=== PATIENT | male | born 1985 | race Hispanic/Latino ===

== ENCOUNTER 2024-01-15 09:11 | Emergency (ER) | payer OTHER, SELFPAY ==
[2024-01-15] MEDS ORDERED: Acetaminophen 500 MG TAB ONE (09:42)
[2024-01-15] MEDS ORDERED: Ondansetron PF 4 MG/2 ML Vial ONE (09:43)
[2024-01-15] MEDS ORDERED: Sodium Chloride 0.9% 1,000 ML ONE (09:43)
[2024-01-15 10:14] LABS: #Basophils 0.1 thou/uL (0.0-0.2); #Lymphocytes 1.9 thou/uL (1.20-3.40); #Monocytes 0.8 thou/uL (0.11-0.59); #Neutrophils 3.4 thou/uL (1.40-6.50); %Eosinophils 0.7 % (0.0-10.0); %Lymphocytes 30.4 % (21.0-51.0); %Monocytes 12.7 % (0.0-10.0); %Neutrophils 54.1 % (42.0-75.0); Hemoglobin 14.9 g/dL (14.0-18.0); Mean Corpuscular HGB CONC 33.1 g/dL (32.0-36.0); Mean Corpuscular Volume 84.7 fl (78.0-98.0); Mean Platelet Volume 8.7 fL (7.4-10.4); Platelet Count 227 10x3/uL (130-400); Red Blood Cell (RBC) Count 5.32 mill/uL (4.70-6.10); White Blood Cell (WBC) Count 6.2 10x3/uL (4.8-10.8)
[2024-01-15 10:26] LABS: Troponin I Less than 0.010 ng/mL (< 0.028)
[2024-01-15 10:49] LABS: SARS-CoV-2 NAA Rapid Test Not Detected (NotDetected)
[2024-01-15] MEDS ORDERED: Ketorolac Tromethamine 30 MG (1 mL) VIAL ONE (11:00)
== END 2024-01-15 11:14 | disposition home or self-care (01) ==
LOC: NAV ERS 09:11
DX: J10.1 Influenza due to other identified influenza virus with other respiratory manifestations (principal); R09.1 Pleurisy; Z87.891 Personal history of nicotine dependence
CPT/HCPCS: 71046; 84484; 85025; 93005; 96361; 96374; 96375; J1885; J2405; J7050